=== PATIENT | female | born 1950 | race African-American/Black ===

== ENCOUNTER 2024-11-01 18:59 | Emergency (ER) | payer BC, SELFPAY ==
[2024-11-01 19:00] VITALS: BMI 33.5
[2024-11-01 19:04] VITALS: BP 143/110
--- NOTE | 2024-11-01 19:15 | ED.GENMED ---
History of Present Illness
General
Chief Complaint: Abdominal Pain
Source: patient, family (Daughter) and ambulance crew
Time Seen by Provider: 11/01/24 19:01
History of Present Illness
History of Present Illness:
74-year-old female presents to the emergency room via ambulance for evaluation of some agitation and abdominal pain. Patient does have a history of dementia. They recently moved back to the area from [place] and are currently residing in a [facility]
6. Daughter states the patient had a small bowel obstruction in the past and she was concerned she may be having recurrence. Also unsure if the patient has been adequately moving her bowels that she can always get a straight answer from her mom.
Upon arrival to the emergency room the patient is comfortable. She offers no complaints.
Past History
Past History
ED Past Medical History: Cancer (breast), COPD, HTN, Hypercholesterolemia, NIDDM and Other (Dementia)
ED Past Surgical History: Gynecological (hyster) and Other (b/l mastectomy, surgery for sbo)
Social History
Tobacco: Non-smoker
Alcohol: None
Drug: None
Phy Exam
Physical Exam
Physical Exam:
General: Awake, Alert, Oriented X2. No acute distress.
Vitals: unremarkable
Head: Atraumatic
Eyes: Pupils equal, EOMI
Throat: Airway intact, no exudates
Neck: Trachea midline
Lungs: Clear and equal b/l
Heart: Regular rate, no murmurs
Abd: Soft, mild lower abdominal tenderness, No pulsatile mass
Neuro: Nonfocal
Skin: Warm, dry, no rash
Extremities: pulses equal b/l, no edema
Course
Orders/Labs/Results
Orders:
Orders
11/01/24 19:14
CT Abd/Pel (IV only)-DH only Urgent
Comment:
Reason For Exam: abdominal pain
Straight cath- Treatment ONCE
0.9% Sodium Chloride 1000 ml [Nss] 1,000 ml IV BOLUS
11/01/24 19:19
Complete Blood Count/With Diff Urgent
Comprehensive Metabolic Panel Urgent
Lipase Urgent
11/01/24 19:31
Urinalysis Reflex To Culture Urgent
Date Specimen was Collected: 11/01/24
Time Specimen was Collected: :
Urine Microscopic Reflex Cult Urgent
Abnormal Lab Results
11/01/24 11/01/24
19:19 19:31
WBC 4.4 L 10^3/uL
(4.8-10.8)
Hgb 11.4 L g/dL
(12.0-16.0)
MCV 73.1 L fL
(81.0-99.0)
MCH 22.4 L pg
(27.0-31.0)
MCHC 30.6 L g/dL
(33.0-37.0)
Monocytes % 9.7 H %
(1.7-9.3)
Chloride 108 H mmol/L
(98-107)
Glucose 155 H mg/dl
(70-99)
Lipase 22 L U/L
(23-300)
Ur Occult Blood Reflex 2+ A
(Negative)
Urine Bacteria (Reflex) Few A
(Negative)
Urine Albumin (Reflex) 1+ A
(Neg - Trace)
11/01/24 19:19
11/01/24 19:19
Vital Signs
Initial and Last Documented VS:
Initial Vital Signs
Pulse Resp Pulse Ox
90 15 98
11/01/24 19:02 11/01/24 19:02 11/01/24 19:02
Last Documented Vital Signs
Temp Pulse Resp BP Pulse Ox
98.3 F 91 19 135/87 97
11/01/24 19:04 11/02/24 00:15 11/02/24 00:00 11/02/24 00:00 11/02/24 00:15
MDM/Problems Addressed
Differential Diagnosis Includes:
Abdominal pain, small bowel obstruction, diverticulitis, constipation
MDM/Problems Addressed:
Patient sent to the emergency room with abdominal pain. Workup here reveals no clear cause for abdominal discomfort however abdominal exam is benign at the time of my evaluation. She has not complained of abdominal pain while she was here. Labs
and urine unremarkable. CT of the abdomen pelvis shows no acute intra-abdominal pathology. Radiologist notes a generous thoracic root and recommends further imaging as an outpatient. I did inform the patient started this. I given the contact
information for the [facility] residency office to facilitate follow-up as they just moved to the area.
*Radiology
Radiology exam reviewed: radiology read reviewed
*Pulse Oximetry
SaO2: 98
Oxygen Mode of Delivery: Room air
Patient hypoxic: no
*Critical Care Note
Total Time (30-74mins, 75-104mins- exclusive of procedures): Not Applicable
ED Attending Note
-
Portions of this chart may have been created with voice recognition software.� Occasional wrong word or��sound alike� substitutions may have occurred due to the inherent limitations of voice recognition software.
Discharge Plan
Departure
Patient Disposition: Home (Routine Discharge)
Date of Disposition: 11/01/24
Time of Disposition: 22:45
Patient with high blood pressure during this ER visit?: No
Condition: Good
Discharge Problem:
Abdominal pain
Instructions: Abdominal Pain
Prescriptions:
No Action
quetiapine 25 mg Tablet
12.5 mg Q8H PRN (Reason: aggitation)
donepezil 5 mg Tablet
5 mg PO HS
pantoprazole 40 mg Tablet,Delayed Release (Dr/Ec)
40 mg PO DAILY
simvastatin 20 mg Tablet
20 mg PO HS
risperidone 1 mg Tablet
1 mg PO DAILY PRN (Reason: psychosis)
memantine 10 mg Tablet
10 mg PO QPM
escitalopram oxalate 5 mg Tablet
5 mg PO DAILY
Referrals:
Family Residency Program [Provider Group]
NONE,* [Family Provider, Internal Medicine]
Activity Restrictions/Additional Instructions:
Deborah came for abdominal discomfort. Her labs are reassuring. CAT scan of the abdomen shows no evidence of an obstruction or other acute inflammatory process. The portion of her chest that was imaged suggest that her thoracic aorta may be on the
slightly larger side. Radiologist recommends a dedicated CAT scan of the chest to further evaluate this which can be done as an outpatient. Please call the family practice office on the number provided to schedule a follow-up appointment.
Interventions
Interventions:
*Risk Screen - Suicide Last Done: 11/01/24 19:04
*General Assessment Last Done: 11/01/24 19:04
*Neglect/Abuse Screening Last Done: 11/01/24 19:04
*ED- Fall Risk Assessment Last Done: 11/01/24 19:04
*ED COVID-19 Vaccine History Last Done: 11/01/24 19:04
XQ-Fplrjp-Ecexyembgx Assessment Last Done: 11/01/24 19:30
Discharge Date and Time
Print Language: GUINEAN
[2024-11-01] MEDS: NSS 1000 IV (19:21)
[2024-11-01 19:28] LABS: Hematocrit 37.2 % (37.0-47.0); Hemoglobin 11.4 g/dL (12.0-16.0); Mean Corp Hgb Conc. 30.6 g/dL (33.0-37.0); Mean Corpuscular Volume 73.1 fL (81.0-99.0); Nucleated Red Blood Cells % 0 %; Platelet Count 183 10^3/uL (130-400); Red Cell Dist. Width 14.1 % (11.5-14.5)
[2024-11-01 19:30] VITALS: BP 151/86
[2024-11-01 19:40] LABS: Urine Character Clear (Clear)
[2024-11-01 19:50] LABS: ALT (SGPT) 11 U/L (0-35); AST (SGOT) 19 U/L (14-36); Albumin 4.0 g/dl (3.5-5.0); Alkaline Phosphatase 55 U/L (38-126); Blood Urea Nitrogen 15 mg/dl (7-17); Calcium 9.8 mg/dl (8.4-10.2); Carbon Dioxide 28 mmol/L (22-30); Chloride 108 mmol/L (98-107); Glucose 155 mg/dl (70-99); Lipase 22 U/L (23-300); Potassium 3.7 mmol/L (3.5-5.1); Sodium 140 mmol/L (135-145); Total Protein 7.3 g/dl (6.3-8.2); eGFR > 60.00
[2024-11-01 20:00] VITALS: BP 133/87
[2024-11-01 20:06] LABS: Urine Squamous Cell >30 /LPF (Few)
[2024-11-01 20:07] LABS: Urine Red Blood Cell 0-2 /HPF (0-2); Urine White Cell 0-2 /HPF (0-5)
[2024-11-01 21:15] VITALS: BP 154/91
[2024-11-01 23:00] VITALS: BP 146/93
[2024-11-02] VITALS: BP 135/87
== END 2024-11-02 00:31 | disposition home or self-care (01) ==
LOC: EMR 18:59
PROVIDERS: EMERGENCY PHYSICIAN Emergency Medicine
DX: R10.9 Unspecified abdominal pain (principal); E78.00 Pure hypercholesterolemia, unspecified; E11.9 Type 2 diabetes mellitus without complications; F03.911 Unspecified dementia, unspecified severity, with agitation; I10 Essential (primary) hypertension; J44.9 Chronic obstructive pulmonary disease, unspecified; Z85.3 Personal history of malignant neoplasm of breast
CPT/HCPCS: 96360; 99284; 74177; 80053; 81003; 81015; 83690; 85025; Q9967